=== PATIENT | male | born 1985 | race Caucasian/White ===

== ENCOUNTER 2022-10-23 16:54 | Observation (INO) ==
[2022-10-23 18:47] LABS: Basophils # (auto) 0.01 K/uL (0-0.2); Basophils % (auto) 0.1 %; Eosinophils # (auto) 0.08 K/uL (0-0.50); Hematocrit (blood only) 43.2 % (42.0-52.0); Immature Granulocytes # (auto) 0.03 K/uL (0.01-0.20); Immature Granulocytes % (auto) 0.4 %; Lymphocytes # (auto) 1.09 K/uL (1.2-3.4); Lymphocytes % (auto) 13.7 %; Mean Corpuscular Hemoglobin 29.3 pg (25.0-34.0); Mean Corpuscular Hgb Conc 34.7 g/dL (32.0-36.0); Mean Corpuscular Volume 84.4 fL (80.0-100.0); Mean Platelet Volume 11.6 fL (9.4-12.4); Monocytes # (auto) 0.58 K/uL (0.11-0.59); Monocytes % (auto) 7.3 %; Neutrophils # (auto) 6.18 K/uL (1.40-6.50); Neutrophils % (auto) 77.5 %; Platelet Count 217 K/uL (130-400); RDW Coefficient of Variation 13.8 % (11.5-14.5); Red Blood Count 5.12 M/uL (4.70-6.10); White Blood Count 7.97 K/ul (4.8-10.8)
[2022-10-23 19:02] LABS: Albumin Globulin Ratio 1.7 (0.9-2); Albumin Level 4.8 gm/dl (3.4-5.0); BUN Creatinine Ratio 11.3 (10-20); Calcium 9.5 mg/dl (8.5-10.1); Creatinine Clr Calc Pharmacy 132.5 ml/min; Est GFR (African American) 133.2 ml/min; Est GFR (Non-African American) 114.9 ml/min; Globulin 2.9 gm/dl (2.5-4.0); Total Protein 7.7 gm/dl (6.0-8.3)
[2022-10-23] MEDS ORDERED: AMPICILLIN/SULBACTAM SOD 3,000 MG in 0.9 % SODIUM CHLORIDE 100 ML IV STA (19:15)
--- NOTE | 2022-10-23 19:30 | Emergency Department Note ---
Impression & Plan Cellulitis of finger, Lymphangitis, Infectious tenosynovitis ED Provider Note INFORMANT: Patient ED PROVIDER(S): Yves Larson DO CHIEF COMPLAINT: Worsening hand infection PLAN: Disposition: Admission Outpatient prescription management: none Discussion with: I spoke with the hospitalist, who will see the patient for admission/observation and further evaluation and consultation. MEDICAL DECISION MAKING: This is a 37-year-old male who presents to the ED with a chief complaint of worsening infection. The patient states that he cut his right middle finger on Saturday. He cut this on a animal skull. The patient states that this morning he noticed his finger swelling. He was seen at urgent care and placed on Augmentin. He was also given an IM injection of antibiotic when he was seen. He states that he took 2 doses of his antibiotics so far today. Despite this, he has had significant increase in swelling of the right finger. He has noticed a red streak up his arm past his elbow. He also has developed fevers. He has been taking antipyretics for his pain and fever. When he presented he was tachycardic with a heart rate of 124. His blood pressure was elevated. His right middle finger is erythematous with discomfort with flexion and extension w hich is concerning for tenosynovitis. He has a red streak traveling up the dorsal aspect of his right hand and through his right arm into the elbow area and just above the elbow concerning for lymphangitis. The patient did not have a leukocytosis or anemia. His electrolytes were unremarkable. Kidney function is normal. He was given IV vancomycin. He will be seen by the hospitalist for further evaluation and care. Triage Nursing notes reviewed. Vital Signs: reviewed Prior /Outside records reviewed: none Differential diagnosis: Differential includes infectious tenosynovitis, cellulitis, lymphangitis, systemic infection with bacteremia. Sepsis is felt to be less likely. Diagnostics, as interpreted by me: 12 lead ECG: none Cardiac Monitoring ordered: none Medical decision rules: none Imaging studies: none Procedures: none. Critical care: none. HPI: See MDM above. PAST MEDICAL HISTORY: See Below PAST SURGICAL HISTORY: See Below SOCIAL HISTORY: See Below HOME MEDICATIONS: See Below ALLERGIES: See Below VITALS: See Below PHYSICAL EXAMINATION: See MDM for positive findings otherwise unremarkable. CONSTITUTIONAL/VITAL SIGNS: Reviewed GENERAL:done as appropriate INTEGUMENTARY: done as appropriate HEAD: done as appropriate EYES: done as appropriate RESPIRATORY: done as appropriate CARDIOVASCULAR:done as appropriate GI/ABDOMEN:done as appropriate EXTREMITIES: done as appropriate NEUROLOGICAL: done as appropriate PSYCHIATRIC:done as appropriate MUSCULOSKELETAL:done as appropriate TRIAGE NURSING DOCUMENTATION REVIEWED. Past Med/Surg History Social History Smoking Status: Never smoker Preferred Language: [place] Irish Feels Safe at Home: Yes Results & Data (ED) Vital Signs Vital Signs - 24 hr 10/23/22 16:57 Temperature 36.6 C Temperature Source Temporal Artery Scan Pulse Rate 124 H Respiratory Rate 18 Respiratory Effort / Characteristics Non-Labored Spontaneous Respiratory Depth Normal Respiratory Pattern Regular Blood Pressure 157/92 H Blood Pressure Mean 113 Blood Pressure Position Sitting Pulse Oximetry 99 Oxygen Delivery Method Room Air Sepsis Recent Fever Within 48 Hours Yes Sepsis New/Unexplained Change in Mental Status N/A Sepsis Action Taken by Nursing No Action Required Laboratory Data 10/23/22 18:20 10/23/22 18:20 Lab Results 10/23/22 10/23/22 Range/Units 18:20 18:20 WBC 7.97 (4.8-10.8) K/ul RBC 5.12 (4.70-6.10) M/uL Hgb 15.0 (14.0-18.0) g/dl Hct 43.2 (42.0-52.0) % MCV 84.4 (80.0-100.0) fL MCH 29.3 (25.0-34.0) pg MCHC 34.7 (32.0-36.0) g/dL RDW Std Deviation 43.0 (36.4-46.3) fL RDW Coeff of Keily 13.8 (11.5-14.5) % Plt Count 217 (130-400) K/uL MPV 11.6 (9.4-12.4) fL Immature Gran % (Auto) 0.4 % Neut % (Auto) 77.5 % Lymph % (Auto) 13.7 % [place] % (Auto) 7.3 % Eos % (Auto) 1.0 % Baso % (Auto) 0.1 % Neut # (Auto) 6.18 (1.40-6.50) K/uL Lymph # (Auto) 1.09 L (1.2-3.4) K/uL [place] # (Auto) 0.58 (0.11-0.59) K/uL Eos # (Auto) 0.08 (0-0.50) K/uL Baso # (Auto) 0.01 (0-0.2) K/uL Immature Gran # (Auto) 0.03 (0.01-0.20) K/uL Sodium 138 (136-145) mmol/L Potassium 4.0 (3.5-5.1) mmol/L Chloride 103 (98-107) mmol/L Carbon Dioxide 24 (21-32) mmol/L Anion Gap 11 (3-11) BUN 9 (6-23) mg/dl Creatinine 0.80 (0.6-1.4) mg/dl Est Cr Clr Drug Dosing 132.5 ml/min Est GFR ( Amer) 133.2 ml/min Est GFR (Non-Af Amer) 114.9 ml/min BUN/Creatinine Ratio 11.3 (10-20) Glucose 88 (70-99(Fasting)) mg/dl Calcium 9.5 (8.5-10.1) mg/dl Total Bilirubin 1.0 (0.2-1.0) mg/dl AST 20 (13-39) U/L ALT 44 (7-52) U/L Alkaline Phosphatase 60 (34-104) U/L Total Protein 7.7 (6.0-8.3) gm/dl Albumin 4.8 (3.4-5.0) gm/dl Globulin 2.9 (2.5-4.0) gm/dl Albumin/Globulin Ratio 1.7 (0.9-2) Discharge Plan Visit Data Chief Complaint: Infection Stated Complaint: POINTER FINGER R HAND,SWELLING,RED ED Provider: Yves Larson Discharge Problem: Cellulitis of finger, Lymphangitis, Infectious tenosynovitis Patient Disposition: Being Evaluated by Hospitalist Forms Stand Alone Forms: My [facility] Referrals Referrals: Bashir Romeo PA-C [Primary Care Provider] -
[2022-10-23] MEDS ORDERED: VANCOMYCIN CONSULT ACTIVE PRN (19:31)
[2022-10-23] MEDS ORDERED: VANCOMYCIN HCL 1,750 MG in SODIUM CHLORIDE 0.9% 500 ML IV ONE (19:31)
[2022-10-23] MEDS ORDERED: POLYETHYLENE (MIRALAX) 17 GM PACK PO PRN (22:04)
[2022-10-23] MEDS ORDERED: HYDROmorphone INJ 0.5 MG/0.5 ML SYR IV PRN (22:04)
[2022-10-23] MEDS ORDERED: oxyCODONE HCL IR 5 MG TAB (IMMEDIATE RELEASE) PO PRN (22:04)
[2022-10-23] MEDS: SODIUM CHLORIDE 0.9% 1000ML 1,000 ML IV SCH (22:21)
[2022-10-23] MEDS: ACETAMINOPHEN 325 MG TAB PO PRN (22:26)
[2022-10-23] MEDS: AMPICILLIN/SULBACTAM SOD 3,000 MG in 0.9 % SODIUM CHLORIDE 100 ML IV SCH (22:26)
[2022-10-23 22:31] LABS: Appearance Urine Clear (Clear); Bilirubin Urine Negative (Negative); Blood Urine Negative (Negative); Color Urine Yellow; Glucose Urine UA Negative (Negative); Ketones Urine 2+ (Negative); Leukocyte Esterase Urine Negative (Negative); Nitrite Urine Negative (Negative); Protein Urine Negative (Negative); Specific Gravity Urine 1.007 (1.000-1.030); Urobilinogen Urine Negative (Negative); pH Urine 5.5 (4.5-7.5)
--- NOTE | 2022-10-23 22:50 | History and Physical Report ---
DATE OF ADMISSION: 10/23/2022. CHIEF COMPLAINT: Right middle finger infection. HISTORY OF PRESENT ILLNESS: A 37-year-old male with past medical history significant for Raynaud's phenomena, family history of hemochromatosis, history of episodes of hypoglycemia, endocrinology thinks its reactive hypoglycemia, recommends low-carb diet and keto diet helps. The patient states since he is on keto diet, his sugars are stable. Presents with right middle finger infection.Last Saturday, he was cleaning the skull of an animal for a mount when he scratched his right middle finger. He washed it and also with hydrogen peroxide, seems okay, but then since yesterday evening,it started to swell and lot of pain. He put a bandage and was having excruciatingly painful and when taking the bandage out, the pain was so severe, he thinks that his blood pressure might have shot up and he passed out for a few seconds.He went to urgent care today and he was given a shot of Rocephin and placed him on Augmentin and advised to go to the ER if worsening. Started to develop redness streaks extending into fore arm, which brought him to the hospital. Yesterday, he had low-grade temperature of 100 degrees. Denies any other complaints. No headache, no dizziness, no blurred visions, no earache, no runny nose, no sore throat, no cough, no chest pain, no shortness of breath, no nausea, no abdominal pain. Normal bowel and bladder movements. Currently, resting comfortably and hemodynamically stable. ALLERGIES: No known drug allergies. PAST MEDICAL HISTORY: As mentioned above. PAST SURGICAL HISTORY: Dental surgery, hand surgery unlisted, repair of nasal septum. MEDICATIONS: The patient is on amlodipine 10 mg p.o. daily. Continue Augmentin 1 tablet p.o. b.i.d. FAMILY HISTORY: Significant for father has hypertension. SOCIAL HISTORY: No smoking, no alcohol, no drug use. REVIEW OF SYSTEMS: As per HPI. Rest of the review of systems is negative. PHYSICAL EXAMINATION: GENERAL: The patient is of moderate build, not in acute distress. VITAL SIGNS: Temperature 36.6, pulse 87, respiratory rate 19, blood pressure 128/87, oxygen 99% on room air. HEENT: Pupils equal, round and reactive to light. Oral mucosa moist. NECK: No JVD. No neck masses. CARDIOVASCULAR: S1 and S2 heard. Regular rate and rhythm. No murmur, no gallop. RESPIRATORY SYSTEM: Normal AP diameter. No accessory muscle use. No wheezing, crackles. ABDOMEN: Soft, bowel sounds present, nontender, no distention. CENTRAL NERVOUS SYSTEM: Alert and oriented. Speech is clear. No facial droop. Obeys simple commands. Insight is good. Moves extremities. EXTREMITIES: Right middle finger is swollen and tender and warm to palpation and also erythematous streaks coming from the hand extending into the forearm up to the elbow. No lower extremity edema or erythema seen. LABORATORY DATA: WBC 7.9, hemoglobin 15, hematocrit 43.2, platelets 217. Sodium 138, potassium 4, chloride 103, bicarbonate 24, BUN 9, creatinine 0.8, serum glucose 88, calcium 9.5, total bilirubin 1, AST 20, ALT 44, alkaline phosphatase 260. SARS-CoV-2 rapid test negative. EKG: Showing sinus tachycardia at a rate of 103, possible left atrial enlargement. Some T-wave inversions seen in the inferior leads. No previous EKGs to compare. ASSESSMENT AND PLAN: This is a 37-year-old male who presents with right middle finger infection. 1. Right finger infection: Started after scratch from his animal skull, which he was trying to mount, was getting worse since yesterday evening. His erythematous streaks extending into the forearm, was in the urgent care, received Rocephin and was placed on Augmentin today morning, not getting better, came to the ER. ER empirically put him on vancomycin and Unasyn, which we will continue. Pain control. NPO. Consult Orthopedics in the a.m. for further recommendations. 2. Syncope: The patient passed out yesterday form severe pain n. We will monitor in the tele. Follow serial cardiac enzymes, echocardiogram. 3. abnormal EKG. We do not have previous EKGs to compare. We will follow the echocardiograms and consult Cardiology. Follow serial enzymes. 3Hx of reactive hypoglycemia: Currently on npo. keto diet, avoid carbs. 4. History of Raynaud's phenomena: On amlodipine. 5. Deep venous thrombosis prophylaxis: SCDs for now. DISPOSITION: Closely monitor in the med tele. PT/OT prior to discharge. Social service to help with discharge planning. Job ID: [id number] [facility]
[2022-10-24] MEDS ORDERED: VANCOMYCIN HCL 1,250 MG in SODIUM CHLORIDE 0.9% 250 ML IV SCH (02:00)
[2022-10-24] MEDS: AMPICILLIN/SULBACTAM SOD 3,000 MG in 0.9 % SODIUM CHLORIDE 100 ML IV SCH ×4 (03:17→21:29)
[2022-10-24] MEDS: ACETAMINOPHEN 325 MG TAB PO PRN ×3 (03:23→14:35)
--- NOTE | 2022-10-24 04:38 | Pharmacy Report ---
Pharmacy Vanc AUC Short Note - Date of Service October 24, 2022 - Assessment & Plan Assessment * 37 year old M receiving VANCOMYCIN IV for treatment of finger/hand cellulitis, lymphangitis, concern for tenosynovitis of finger * Pertinent microbiologic data includes: no cultures or serology or dered/obtained * Day # 1 Plan Vancomycin * AUC/GERARDO is the preferred PK/PD target for vancomycin * AUC guided dosing is effective and associated with decreased risk of nephrot oxicity compared to traditional trough targets * Loading dose: 1750mg x 1 * Maint dose: 1250mg IV Q 12 hrs, with 1st dose given at 0200 10/24 * This maint dose is predicted to achieve target AUC/GERARDO of 400-600 mg/L.hr and may be associated with a 10 % risk of nephrotoxicity * Will check level with 2nd or 3rd maint dose if therapy to continue Pharmacy will continue to follow and will adjust dose/frequency as necessary. Thank you.
[2022-10-24 06:07] LABS: Basophils # (auto) 0.01 K/uL (0-0.2); Basophils % (auto) 0.2 %; Eosinophils # (auto) 0.13 K/uL (0-0.50); Hematocrit (blood only) 39.6 % (42.0-52.0); Hemoglobin 13.6 g/dl (14.0-18.0); Immature Granulocytes # (auto) 0.01 K/uL (0.01-0.20); Immature Granulocytes % (auto) 0.2 %; Lymphocytes # (auto) 0.98 K/uL (1.2-3.4); Lymphocytes % (auto) 22.9 %; Mean Corpuscular Hemoglobin 29.1 pg (25.0-34.0); Mean Corpuscular Hgb Conc 34.3 g/dL (32.0-36.0); Mean Corpuscular Volume 84.8 fL (80.0-100.0); Mean Platelet Volume 11.5 fL (9.4-12.4); Monocytes # (auto) 0.52 K/uL (0.11-0.59); Monocytes % (auto) 12.1 %; Neutrophils # (auto) 2.63 K/uL (1.40-6.50); Neutrophils % (auto) 61.6 %; Platelet Count 179 K/uL (130-400); RDW Standard Deviation 43.5 fL (36.4-46.3); Red Blood Count 4.67 M/uL (4.70-6.10); White Blood Count 4.28 K/ul (4.8-10.8)
[2022-10-24 06:19] LABS: BUN Creatinine Ratio 10.4 (10-20); Calcium 8.7 mg/dl (8.5-10.1); Creatinine Clr Calc Pharmacy 163.6 ml/min; Est GFR (African American) 135.3 ml/min; Est GFR (Non-African American) 116.7 ml/min; Magnesium 1.9 mg/dl (1.7-2.4); Potassium 3.8 mmol/L (3.5-5.1)
[2022-10-24] MEDS: amLODIPine BESYLATE 5 MG TAB PO SCH (08:14)
[2022-10-24] MEDS: SODIUM CHLORIDE 0.9% 1000ML 1,000 ML IV SCH ×2 (08:15→20:00)
--- NOTE | 2022-10-24 09:25 | Hospitalist Progress Note ---
Date of Service October 24, 2022 Assessment & Plan (1) Cellulitis of finger: (2) Vasovagal syncope: (3) Lymphangitis: Plan: This is a 37-year-old male who presents with right middle finger infection. 1. Right finger infection: Started after scratch from the animal skull, which he was trying to mount -the wound was getting worse and developed erythematous streaks extending into the forearm - pt was in the urgent care, received Rocephin and was placed on Augmentin - however not improved so presented to ER -ER empirically started him on vancomycin and Unasyn - erythematous streaking already resolving - Pain much improved and pt can flex the finger better - Orthopedics consulted further recommendations -recommend to continue IV antibiotics, no surgical intervention necessary at this time 2. Syncope: The patient passed out yesterday form severe pain, likely vasovagal episode - monitor in the tele - echocardiogram obtained - normal study -LV is normal in size. There is normal LV wall thickness. EF 60 to 65%. LV systolic function is normal. No segmental LV wall motion abnormalities are noted. LV wall motion is normal. RV cavity size is normal. RV systolic function is normal as assessed by TAPSE. - abnormal EKG. We do not have previous EKGs to compare. We will follow the echocardiograms and consult w/ Cardiology. 3. Hx of reactive hypoglycemia: keto diet, avoid carbs 4. History of Raynaud's phenomena: On amlodipine. DVT prophylaxis: SCDs for now. DISPOSITION:med tele. Admission and Anticipated Discharge Date Admission Date: October 23, 2022 Subjective Pt seen in follow up of R finger infection, syncope Currently laying in bed, in no acute distress Overall patient feels well, denies any fevers chills Reports streaking has much improved, and pain is much improved as well Patient seen by orthopedics, recommend to continue IV antibiotics, no surgical intervention needed at this time Patient also seen by cardiology due to syncopal episode Currently patient denies any chest pain palpitations feeling dizzy or short of breath Review of Systems Review of Systems: All systems reviewed & are unremarkable except as noted in Subjective Physical Exam Physical Exam: GENERAL: The patient is of moderate build, not in acute distress. HEENT: NC/AT. EOMI. Pupils equal, round and reactive to light. Oral mucosa moist. NECK: No JVD. No neck masses. CARDIOVASCULAR: S1 and S2 heard. Regular rate and rhythm. No murmur, no gallop. RESPIRATORY: Normal AP diameter. No accessory muscle use. No wheezing, crackles. ABDOMEN: Soft, bowel sounds present, nontender, no distention. NEURO: Alert and oriented. Speech is clear. No facial droop. Moves extremities. EXTREMITIES: Right middle finger is swollen and tender and warm to palpation. There was erythematous streaking from the hand extending into the forearm up to the elbow, but now resolved. Results & Data Results & Data ([facility]) Vital Signs (Past 12 Hours) Vital Signs Temp Pulse Pulse Resp BP Pulse Ox O2 Del Method 10/24/22 07:41 36.7 C 72 18 124/81 95 Room Air 10/24/22 07:08 63 10/24/22 02:40 36.5 C 73 16 126/79 95 Room Air 10/23/22 23:11 86 10/23/22 22:07 37.0 C 91 H 20 154/83 H 98 Room Air Laboratory Results 10/24/22 10/24/22 10/23/22 Range/Units 05:32 05:32 21:50 WBC 4.28 L (4.8-10.8) K/ul RBC 4.67 L (4.70-6.10) M/uL Hgb 13.6 L (14.0-18.0) g/dl Hct 39.6 L (42.0-52.0) % MCV 84.8 (80.0-100.0) fL MCH 29.1 (25.0-34.0) pg MCHC 34.3 (32.0-36.0) g/dL RDW Std Deviation 43.5 (36.4-46.3) fL RDW Coeff of Keily 14.0 (11.5-14.5) % Plt Count 179 (130-400) K/uL MPV 11.5 (9.4-12.4) fL Immature Gran % (Auto) 0.2 % Neut % (Auto) 61.6 % Lymph % (Auto) 22.9 % [place] % (Auto) 12.1 % Eos % (Auto) 3.0 % Baso % (Auto) 0.2 % Neut # (Auto) 2.63 (1.40-6.50) K/uL Lymph # (Auto) 0.98 L (1.2-3.4) K/uL [place] # (Auto) 0.52 (0.11-0.59) K/uL Eos # (Auto) 0.13 (0-0.50) K/uL Baso # (Auto) 0.01 (0-0.2) K/uL Immature Gran # (Auto) 0.01 (0.01-0.20) K/uL Sodium 140 (136-145) mmol/L Potassium 3.8 (3.5-5.1) mmol/L Chloride 107 (98-107) mmol/L Carbon Dioxide 25 (21-32) mmol/L Anion Gap 8 (3-11) BUN 8 (6-23) mg/dl Creatinine 0.77 (0.6-1.4) mg/dl Est Cr Clr Drug Dosing 163.6 ml/min Est GFR ( Amer) 135.3 ml/min Est GFR (Non-Af Amer) 116.7 ml/min BUN/Creatinine Ratio 10.4 (10-20) Glucose 92 (70-99(Fasting)) mg/dl Calcium 8.7 (8.5-10.1) mg/dl Magnesium 1.9 (1.7-2.4) mg/dl Total Bilirubin (0.2-1.0) mg/dl AST (13-39) U/L ALT (7-52) U/L Alkaline Phosphatase (34-104) U/L Total Protein (6.0-8.3) gm/dl Albumin (3.4-5.0) gm/dl Globulin (2.5-4.0) gm/dl Albumin/Globulin Ratio (0.9-2) Urine Color Yellow Urine Appearance Clear (Clear) Urine pH 5.5 (4.5-7.5) Ur Specific [place] 1.007 (1.000-1.030) Urine Protein Negative (Negative) Urine Glucose (UA) Negative (Negative) Urine Ketones 2+ H (Negative) Urine Blood Negative (Negative) Urine Nitrite Negative (Negative) Urine Bilirubin Negative (Negative) Urine Urobilinogen Negative (Negative) Ur Leukocyte Esterase Negative (Negative) SARS-CoV-2, RNA, NAAT (NEGATIVE) 10/23/22 10/23/22 10/23/22 Range/Units 20:05 18:20 18:20 WBC 7.97 (4.8-10.8) K/ul RBC 5.12 (4.70-6.10) M/uL Hgb 15.0 (14.0-18.0) g/dl Hct 43.2 (42.0-52.0) % MCV 84.4 (80.0-100.0) fL MCH 29.3 (25.0-34.0) pg MCHC 34.7 (32.0-36.0) g/dL RDW Std Deviation 43.0 (36.4-46.3) fL RDW Coeff of Keily 13.8 (11.5-14.5) % Plt Count 217 (130-400) K/uL MPV 11.6 (9.4-12.4) fL Immature Gran % (Auto) 0.4 % Neut % (Auto) 77.5 % Lymph % (Auto) 13.7 % [place] % (Auto) 7.3 % Eos % (Auto) 1.0 % Baso % (Auto) 0.1 % Neut # (Auto) 6.18 (1.40-6.50) K/uL Lymph # (Auto) 1.09 L (1.2-3.4) K/uL [place] # (Auto) 0.58 (0.11-0.59) K/uL Eos # (Auto) 0.08 (0-0.50) K/uL Baso # (Auto) 0.01 (0-0.2) K/uL Immature Gran # (Auto) 0.03 (0.01-0.20) K/uL Sodium 138 (136-145) mmol/L Potassium 4.0 (3.5-5.1) mmol/L Chloride 103 (98-107) mmol/L Carbon Dioxide 24 (21-32) mmol/L Anion Gap 11 (3-11) BUN 9 (6-23) mg/dl Creatinine 0.80 (0.6-1.4) mg/dl Est Cr Clr Drug Dosing 132.5 ml/min Est GFR ( Amer) 133.2 ml/min Est GFR (Non-Af Amer) 114.9 ml/min BUN/Creatinine Ratio 11.3 (10-20) Glucose 88 (70-99(Fasting)) mg/dl Calcium 9.5 (8.5-10.1) mg/dl Magnesium (1.7-2.4) mg/dl Total Bilirubin 1.0 (0.2-1.0) mg/dl AST 20 (13-39) U/L ALT 44 (7-52) U/L Alkaline Phosphatase 60 (34-104) U/L Total Protein 7.7 (6.0-8.3) gm/dl Albumin 4.8 (3.4-5.0) gm/dl Globulin 2.9 (2.5-4.0) gm/dl Albumin/Globulin Ratio 1.7 (0.9-2) Urine Color Urine Appearance (Clear) Urine pH (4.5-7.5) Ur Specific [place] (1.000-1.030) Urine Protein (Negative) Urine Glucose (UA) (Negative) Urine Ketones (Negative) Urine Blood (Negative) Urine Nitrite (Negative) Urine Bilirubin (Negative) Urine Urobilinogen (Negative) Ur Leukocyte Esterase (Negative) SARS-CoV-2, RNA, NAAT NEGATIVE (NEGATIVE) Medications Administered Current Inpatient Medications Acetaminophen (Acetaminophen 325 Mg Tab) 650 mg PO Q4H PRN PRN Reason: Pain or Fever Stop: 11/22/22 22:03 Last Admin: 10/24/22 07:35 Dose: 650 mg Amlodipine Besylate (Amlodipine Besylate 5 Mg Tab) [facility] [place] Stop: 11/23/22 08:59 Last Admin: 10/24/22 08:14 Dose: 10 mg Hydromorphone HCl (Hydromorphone Inj 0.5 Mg/0.5 Ml Syr) 0.5 mg IV Q4H PRN PRN Reason: Severe Pain (Scale 7, 8, 9,10) Stop: 11/06/22 22:03 Sodium Chloride (Nss 1000ml) 1,000 mls @ 100 mls/hr IV .Q10H [facility] Stop: 11/22/22 22:03 Last Admin: 10/24/22 08:15 Dose: 100 mls/hr Ampicillin Sodium/Sulbactam Sodium 3,000 mg/ Sodium Chloride 108 mls @ 200 mls/hr IV Q6H [facility]; Protocol Stop: 10/30/22 21:59 Last Infusion: 10/24/22 04:45 Dose: Infused Vancomycin HCl 1,250 mg/ (Sodium Chloride) 275 mls @ 200 mls/hr IV Q12H [facility]; Protocol Stop: 10/31/22 01:59 Last Infusion: 10/24/22 04:45 Dose: Infused Miscellaneous Information (Vancomycin Consult Active) 1 each N/A UD PRN PRN Reason: Consult Stop: 11/22/22 19:30 Oxycodone HCl (Oxycodone Hcl Ir 5 Mg Tab (Immediate Release)) 5 mg PO Q6H PRN PRN Reason: Moderate Pain (Scale 4, 5, 6) Stop: 11/06/22 22:03 Polyethylene Glycol (Polyethylene (Miralax) 17 Gm Pack) 17 gm PO DAILY PRN PRN Reason: Constipation Stop: 11/22/22 22:03
--- NOTE | 2022-10-24 10:12 | Electrocardiogram Report ---
Test Reason : Blood Pressure : / mmHG Vent. Rate : 103 BPM Atrial Rate : 103 BPM P-R Int : 134 ms QRS Dur : 082 ms QT Int : 322 ms P-R-T Axes : 040 062 -13 degrees QTc Int : 421 ms Sinus tachycardia Possible Left atrial enlargement T wave abnormality, consider inferior ischemia Abnormal ECG No previous ECGs available Confirmed by Trell Chapman ([id number]) on 10/24/2022 10:12:04 AM Referred By: REFERRED SELF Confirmed By:Tommie Chapman
--- NOTE | 2022-10-24 10:17 | Electrocardiogram Report ---
Test Reason : Blood Pressure : / mmHG Vent. Rate : 072 BPM Atrial Rate : 072 BPM P-R Int : 138 ms QRS Dur : 092 ms QT Int : 382 ms P-R-T Axes : 014 064 017 degrees QTc Int : 418 ms Normal sinus rhythm Normal ECG When compared with ECG of 23-OCT-2022 18:21, (unconfirmed) Nonspecific T wave abnormality no longer evident in Anterior leads Confirmed by Trell Chapman ([id number]) on 10/24/2022 10:17:05 AM Referred By: REFERRED SELF Confirmed By:Tommie Chapman
[2022-10-24] MEDS: VANCOMYCIN HCL 1,500 MG in SODIUM CHLORIDE 0.9% 500 ML IV SCH (11:51)
--- NOTE | 2022-10-24 11:59 | Orthopedic Consultation ---
Date of Consultation October 24, 2022 Assessment & Plan (1) Cellulitis of finger: 35-year-old male with infection right middle finger. This is obviously improving. This does not appear surgical in nature. Plan to continue IV antibiotics at this time. He has not quite reached the 24-hour period after the IV antibiotics were started. I will discuss the case with Dr. Frankel. If patient continues to improve over the day, question possibility of being discharged home on orals today versus continuing IV antibiotics overnight and discharge home tomorrow. Patient can f/u with Dr Frankel in the office if worsening sx's. History of Present Illness Reason for Consultation: Right third finger infection Attending Physician: Papa Flowers MD History of Present Illness A 37-year-old male with past medical history significant for Raynaud's phenomena, family history of hemochromatosis, history of episodes of hypoglycemia, endocrinology thinks its reactive hypoglycemia, recommends low- carb diet and keto diet helps. Patient ended up scratching his right middle finger approximately 3 days ago. Patient states that he was preparing a mounted on a moves that he had taken up in [place] the prior week. As he was cleaning the most skull, he had placed his finger inside part of the nasal cavity and ended up scratching his finger. He states that he cleaned off the finger with hydrogen peroxide and placed a Band-Aid over it. Several days later he began noticed increased redness and swelling and increased He decided to go to the urgent care center where he had 1 shot of Rocephin and was put on Augmentin. Patient was told to go to the emergency room if this did not help and it was worsening symptoms. Patient then later noted he began having increased red striations up his right forearm. He continued to have worsening pain and decreased range of motion of the right middle finger and he came into the emergency room. It was felt he needed admitted for IV antibiotics and he was [facility]. He was started on IV antibiotics last night. This morning, the patient is awake and alert. He states that his finger feels much better this morning. We have been asked to see him for his right finger infection. 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 Alert and oriented x3. No acute distress. Pleasant and cooperative. On examination of his right upper extremity, he has some noticeable erythema and swelling of the distal end of his right middle finger. He has a small blistered area over the dorsum of the finger just proximal to the fingernail bed. There is no overt purulence noted at this time. There is no open wound and no jacoby inage. Erythema extends to the PIP joint. Patient had striations traveling up his right forearm on admission however this has resolved. He has no pain in the right wrist and or dorsum of the hand. He has good wrist range of motion at this time without discomfort. His other fingers not affected at this time and is slowly around the right middle finger. He can almost fully flex the right middle finger at this time without discomfort but feels pressure. He has no pain with passive extension of the middle finger at this time. Sensation is intact at this time. Cap refills less than 2 seconds. Results & Data ([facility]) Vital Signs (Past 12 Hours) Vital Signs Temp Pulse Pulse Resp BP Pulse Ox O2 Del Method 10/24/22 11:02 36.6 C 80 18 135/84 95 Room Air 10/24/22 07:41 36.7 C 72 18 124/81 95 Room Air 10/24/22 07:08 63 10/24/22 02:40 36.5 C 73 16 126/79 95 Room Air Laboratory Results Laboratory Results WBC 4.28 K/ul (4.8-10.8) L 10/24/22 05:32 RBC 4.67 M/uL (4.70-6.10) L 10/24/22 05:32 Hgb 13.6 g/dl (14.0-18.0) L 10/24/22 05:32 Hct 39.6 % (42.0-52.0) L 10/24/22 05:32 MCV 84.8 fL (80.0-100.0) 10/24/22 05:32 MCH 29.1 pg (25.0-34.0) 10/24/22 05:32 MCHC 34.3 g/dL (32.0-36.0) 10/24/22 05:32 RDW Std Deviation 43.5 fL (36.4-46.3) 10/24/22 05:32 RDW Coeff of Keily 14.0 % (11.5-14.5) 10/24/22 05:32 Plt Count 179 K/uL (130-400) 10/24/22 05:32 MPV 11.5 fL (9.4-12.4) 10/24/22 05:32 Immature Gran % (Auto) 0.2 % 10/24/22 05:32 Neut % (Auto) 61.6 % 10/24/22 05:32 Lymph % (Auto) 22.9 % 10/24/22 05:32 Mcmullen % (Auto) 12.1 % 10/24/22 05:32 Eos % (Auto) 3.0 % 10/24/22 05:32 Baso % (Auto) 0.2 % 10/24/22 05:32 Neut # (Auto) 2.63 K/uL (1.40-6.50) 10/24/22 05:32 Lymph # (Auto) 0.98 K/uL (1.2-3.4) L 10/24/22 05:32 Mcmullen # (Auto) 0.52 K/uL (0.11-0.59) 10/24/22 05:32 Eos # (Auto) 0.13 K/uL (0-0.50) 10/24/22 05:32 Baso # (Auto) 0.01 K/uL (0-0.2) 10/24/22 05:32 Immature Gran # (Auto) 0.01 K/uL (0.01-0.20) 10/24/22 05:32 Sodium 140 mmol/L (136-145) 10/24/22 05:32 Potassium 3.8 mmol/L (3.5-5.1) 10/24/22 05:32 Chloride 107 mmol/L (98-107) 10/24/22 05:32 Carbon Dioxide 25 mmol/L (21-32) 10/24/22 05:32 Anion Gap 8 (3-11) 10/24/22 05:32 BUN 8 mg/dl (6-23) 10/24/22 05:32 Creatinine 0.77 mg/dl (0.6-1.4) 10/24/22 05:32 Est Cr Clr Drug Dosing 163.6 ml/min 10/24/22 05:32 Est GFR ( Amer) 135.3 ml/min 10/24/22 05:32 Est GFR (Non-Af Amer) 116.7 ml/min 10/24/22 05:32 BUN/Creatinine Ratio 10.4 (10-20) 10/24/22 05:32 Glucose 92 mg/dl (70-99(Fasting)) 10/24/22 05:32 Calcium 8.7 mg/dl (8.5-10.1) 10/24/22 05:32 Magnesium 1.9 mg/dl (1.7-2.4) 10/24/22 05:32 Total Bilirubin 1.0 mg/dl (0.2-1.0) 10/23/22 18:20 AST 20 U/L (13-39) 10/23/22 18:20 ALT 44 U/L (7-52) 10/23/22 18:20 Alkaline Phosphatase 60 U/L (34-104) 10/23/22 18:20 Total Protein 7.7 gm/dl (6.0-8.3) 10/23/22 18:20 Albumin 4.8 gm/dl (3.4-5.0) 10/23/22 18:20 Globulin 2.9 gm/dl (2.5-4.0) 10/23/22 18:20 Albumin/Globulin Ratio 1.7 (0.9-2) 10/23/22 18:20 Urine Color Yellow 10/23/22 21:50 Urine Appearance Clear (Clear) 10/23/22 21:50 Urine pH 5.5 (4.5-7.5) 10/23/22 21:50 Ur Specific [place] 1.007 (1.000-1.030) 10/23/22 21:50 Urine Protein Negative (Negative) 10/23/22 21:50 Urine Glucose (UA) Negative (Negative) 10/23/22 21:50 Urine Ketones 2+ (Negative) H 10/23/22 21:50 Urine Blood Negative (Negative) 10/23/22 21:50 Urine Nitrite Negative (Negative) 10/23/22 21:50 Urine Bilirubin Negative (Negative) 10/23/22 21:50 Urine Urobilinogen Negative (Negative) 10/23/22 21:50 Ur Leukocyte Esterase Negative (Negative) 10/23/22 21:50 SARS-CoV-2, RNA, NAAT NEGATIVE (NEGATIVE) 10/23/22 20:05
--- NOTE | 2022-10-24 12:12 | Cardiology Consultation ---
Date of Consultation October 24, 2022 Assessment & Plan (1) Vasovagal syncope: (2) Cellulitis of finger: Plan It appears the patient suffered from vasovagal syncope in the setting of severe pain The pathophysiology of which was discussed with him at great length today and counseled on avoidance in the future. No further cardiac testing or invention necessary at this time. History of Present Illness Reason for Consultation: Syncope Requesting Physician: [facility] Attending Physician: Papa Flowers MD History of Present Illness It was my pleasure to see Mr. Mcclelland in cardiac consultation today October 24, 2022. He is a very pleasant and healthy 37-year-old gentleman who presented to [facility] [place] with reports of a syncopal episode. The patient states that he was recently dressing a moose carcass that he shot in [place] last week. He nicked his finger and despite cleaning and dressing at the time it became progressively painful and red over the next several days. He states on the day of presentation was so painful that when he removed the bandage the pain became so intense his vision turned white and he lost consciousness for few seconds. He denies any associated cardiac symptoms specifically denied any associated chest pain, shortness of breath, palpitations. He states that he knows it was the pain that caused him to pass out. Allergies Allergy/AdvReac Type Severity Reaction Status Date / Time No Known Allergies Allergy Verified 10/23/22 19:44 Home Medications Medication Instructions Recorded Confirmed Type amlodipine 10 mg tablet 10 mg PO QAM 10/23/22 10/23/22 History amoxicillin 875 mg-potassium 1 tab PO BID 10/23/22 10/23/22 History clavulanate 125 mg tablet Patient History Social History Smoking Status: Never smoker Hx Alcohol Use: No Hx Substance Use: No Preferred Language: Latvian Communication Ability: Effective Fueler Required: No Beliefs That Will Affect Care: None Current Living Situation: Spouse Feels Safe at Home: Yes Assistive Devices: None Review of Systems Review of Systems: All systems reviewed & are unremarkable except as noted in HPI & below Physical Exam Physical Exam: Physical Exam: General: Awake, alert and oriented x 3. No acute distress. HEENT: Normocephalic, atraumatic. Pupils equal, round and reactive to light and accommodation. Extraocular muscles are intact. Anicteric sclera. Moist mucous membranes. Neck: No JVD. No bruit. Cardiovascular: Regular. No S-4. Normal S-1 and S-2. No S-3. No murmurs, rubs or gallops. Pulmonary: Clear to auscultation bilaterally. No rales, rhonchi, or wheezing. Abdomen: Bowel sounds x 4, soft. No rebound, guarding or tenderness. No organomegaly. Extremities: No clubbing, cyanosis or edema. +2 pedal pulses bilaterally. Skin: Warm and dry. Results & Data ([facility]) Vital Signs (Past 12 Hours) Vital Signs Temp Pulse Pulse Resp BP Pulse Ox O2 Del Method 10/24/22 11:02 36.6 C 80 18 135/84 95 Room Air 10/24/22 07:41 36.7 C 72 18 124/81 95 Room Air 10/24/22 07:08 63 10/24/22 02:40 36.5 C 73 16 126/79 95 Room Air
[2022-10-25] MEDS: VANCOMYCIN HCL 1,500 MG in SODIUM CHLORIDE 0.9% 500 ML IV SCH (00:05)
[2022-10-25] MEDS: AMPICILLIN/SULBACTAM SOD 3,000 MG in 0.9 % SODIUM CHLORIDE 100 ML IV SCH ×2 (03:53→09:40)
[2022-10-25] MEDS: SODIUM CHLORIDE 0.9% 1000ML 1,000 ML IV SCH (06:50)
[2022-10-25] MEDS: amLODIPine BESYLATE 5 MG TAB PO SCH (09:40)
[2022-10-25] MEDS ORDERED: ADVANCED PROBIOTIC 1250 MG CAPSULE PO SCH (11:15)
--- NOTE | 2022-10-25 11:23 | Electrocardiogram Report ---
Test Reason : Blood Pressure : / mmHG Vent. Rate : 068 BPM Atrial Rate : 068 BPM P-R Int : 146 ms QRS Dur : 096 ms QT Int : 390 ms P-R-T Axes : 027 042 007 degrees QTc Int : 414 ms Normal sinus rhythm Possible Left atrial enlargement Nonspecific ST abnormality Abnormal ECG When compared with ECG of 24-OCT-2022 04:01, Nonspecific T wave abnormality now evident in Anterior leads Confirmed by Trell Chapman ([id number]) on 10/25/2022 11:23:36 AM Referred By: REFERRED SELF Confirmed By:Tommie Chapman
--- NOTE | 2022-10-25 11:38 | Discharge Summary ---
Date of Service October 25, 2022 Admission HPI Per Admitting Provider A 37-year-old male with past medical history significant for Raynaud's phenomena, family history of hemochromatosis, history of episodes of hypoglycemia, endocrinology thinks its reactive hypoglycemia, recommends low- carb diet and keto diet helps. The patient states since he is on keto diet, his sugars are stable. Presents with right middle finger infection.Last Saturday, he was cleaning the skull of an animal for a mount when he scratched his right middle finger. He washed it and also with hydrogen peroxide, seems okay, but then since yesterday evening,it started to swell and lot of pain. He put a bandage and was having excruciatingly painful and when taking the bandage out, the pain was so severe, he thinks that his blood pressure might have shot up and he passed out for a few seconds.He went to urgent care today and he was given a shot of Rocephin and placed him on Augmentin and advised to go to the ER if worsening. Started to develop redness streaks extending into fore arm, which brought him to the hospital. Yesterday, he had low-grade temperature of 100 degrees. Denies any other complaints. No headache, no dizziness, no blurred visions, no earache, no runny nose, no sore throat, no cough, no chest pain, no shortness of breath, no nausea, no abdominal pain. Normal bowel and bladder movements. Currently, resting comfortably and hemodynamically stable. Admission Exam Per Admitting Provider GENERAL: The patient is of moderate build, not in acute distress. VITAL SIGNS: Temperature 36.6, pulse 87, respiratory rate 19, blood pressure 128/87, oxygen 99% on room air. HEENT: Pupils equal, round and reactive to light. Oral mucosa moist. NECK: No JVD. No neck masses. CARDIOVASCULAR: S1 and S2 heard. Regular rate and rhythm. No murmur, no gallop. RESPIRATORY SYSTEM: Normal AP diameter. No accessory muscle use. No wheezing, crackles. ABDOMEN: Soft, bowel sounds present, nontender, no distention. CENTRAL NERVOUS SYSTEM: Alert and oriented. Speech is clear. No facial droop. Obeys simple commands. Insight is good. Moves extremities. EXTREMITIES: Right middle finger is swollen and tender and warm to palpation and also erythematous streaks coming from the hand extending into the forearm up to the elbow. No lower extremity edema or erythema seen. Principal Diagnosis Cellulitis of right middle finger Vasovagal episode Discharge Exam GENERAL: The patient is of moderate build, not in acute distress. HEENT: NC/AT. EOMI. Pupils equal, round and reactive to light. Oral mucosa moist. NECK: No JVD. No neck masses. CARDIOVASCULAR: S1 and S2 heard. Regular rate and rhythm. No murmur, no gallop. RESPIRATORY: Normal AP diameter. No accessory muscle use. No wheezing, crackles. ABDOMEN: Soft, bowel sounds present, nontender, no distention. NEURO: Alert and oriented. Speech is clear. No facial droop. Moves extremities. EXTREMITIES:Right middle finger w/erythema, edema (but much improved from previous), pt is able to bend the finger now. There were erythematous streaks from the hand extending into the forearm up to the elbow, but now resolved. Discharge Data Allergies Allergy/AdvReac Type Severity Reaction Status Date / Time No Known Allergies Allergy Verified 10/23/22 19:44 Consultations 10/23/22 19:39 ED Decision to Admit Stat 10/24/22 06:21 Consult Cardiology Routine 10/24/22 08:00 Consult Orthopedic Surgery Routine Hospital Course (1) Cellulitis of finger: (2) Vasovagal syncope: (3) Lymphangitis: This is a 37-year-old male who presents with right middle finger infection. 1. Right finger infection: Started after scratch from the animal skull, which he was trying to mount -the wound was getting worse and developed erythematous streaks extending into the forearm - pt was in the urgent care, received Rocephin and was placed on Augmentin - however not improved so presented to ER -ER empirically started him on vancomycin and Unasyn - erythematous streaking already resolved - Pain resolved and pt can flex the finger better - Orthopedics consulted further recommendations -recommend to continue w/antibiotics, no surgical intervention necessary at this time - pt to continue w/ PO antibiotics and follow up w/ PCP 2. Syncope: The patient passed out prior to admission form severe pain, likely vasovagal episode - monitored in the tele - echocardiogram obtained - normal study -LV is normal in size. There is normal LV wall thickness. EF 60 to 65%. LV systolic function is normal. No segmental LV wall motion abnormalities are noted. LV wall motion is normal. RV cavity size is normal. RV systolic function is normal as assessed by TAPSE. - abnormal EKG. We do not have previous EKGs to compare. We will follow the echocardiograms and consult w/ Cardiology. 3. Hx of reactive hypoglycemia: keto diet, avoid carbs 4. History of Raynaud's phenomena: On amlodipine. Total Time Total Time Spent Total Time Spent (In Minutes): 40 Discharge Plan Discharge Items Patient Disposition: Home - Self-Care Reason For Visit: INFECTION OF RIGHT HAND, SYNCOPE? Discharge Diagnosis: Cellulitis of right middle finger Vasovagal episode Activity: Per Instructions section Non-emergency contact: Primary Care Provider Call non-emergency contact if: you have any medication questions and your symptoms worsen Follow-up/Referrals: Bashir Romeo PA-C [Primary Care Provider] - (Date & Time 10/29/2022 10:00 AM Provider Mohit Mckoy PA-C Department [facility] ) Diet: Regular and Other - See Diet Comment Diet Comment: keto, low-carb Addtl Attending Provider Instructions: Follow-up with primary care physician, the appointment was scheduled for you for October 29. Finish antibiotic treatment with Augmentin as prescribed. Recommend taking probiotics while on antibiotics to prevent any stomach upsets. Pending Studies at Discharge: No Stand-Alone Forms: [facility], Smoking Cessation Medications and DC Order Prescriptions: Continued amlodipine 10 mg tablet 10 mg PO QAM amoxicillin-pot clavulanate 875-125 mg tablet 1 tab PO BID Rx Instructions: STARTED 10/23/22 FOR 10 DAYS. Discharge Orders: Discharge Order (Routine); Ordered 10/25/22 Ordered By: Papa Flowers Admission Data Admit Date/Time: 10/23/22 21:17 Attending Provider: Papa Flowers Admit Provider: Jewel Aguilar Primary Care Provider: Bashir Romeo Other Providers: Jewel Aguilar ; Trell Frankel ; Fracisco Carranza ; Abel Moy ; Mac Stuart ; Andre Mayberry ; Sang Soriano ; Barber Mackay ; Roberta Bingham ; Sabina Xiong ; Laila Avitia ; Sean Castanon Other Interventions: Discharge Summary Assessment (RN) Last Done: 10/25/22 11:32
== END 2022-10-25 11:50 | disposition home or self-care (01) ==
LOC: 2N 16:54 → ED 16:54 → 2N 21:55